=== PATIENT | female | born 1985 | race Caucasian/White ===

== ENCOUNTER 2018-04-19 15:58 | Emergency (ER) | payer OTHER ==
[~2018-04-19] VITALS: Ht 167.6 cm; Wt 74.8 kg
[2018-04-19] MEDS ORDERED: ALPRAZOLAM 0.5 MG TABLET ONE (17:22)
[2018-04-19] MEDS: ALPRAZOLAM 0.5 MG TABLET PO ONE (17:25)
--- NOTE | 2018-04-19 17:27 | NUR ---
Patient discharged to home in stable condition. Written and verbal after care instructions given. Patient verbalizes understanding of instruction.
[2018-04-19 17:28] VITALS: BP 132/89
== END 2018-04-19 17:30 | disposition home or self-care (01) ==
LOC: ER 16:11
DX: R06.4 Hyperventilation (principal); F41.0 Panic disorder [episodic paroxysmal anxiety]; R11.10 Vomiting, unspecified
CPT/HCPCS: 99284; A4606; Z7610